=== PATIENT | female | born 1950 | race Caucasian/White ===

== ENCOUNTER → 2018-03-26 | Outpatient (CLI) | payer MEDICARE ==
[~2018-03-26] MED LIST: /ADVA50050; /CELE20CA; /WARF25TA; ACET65TA; ADV500INH INH; ALBU17IN2; ALBU17IN2 INH; ALBU83IN INH; ASPI81TA85 PO; BACT800T; CALC1TAB19 PO; CALC600T60 PO; CETI10TA; CIPR-250 PO; DONETAB6 PO; DYAZ37.5; FLAX10002 PO; FLEXERIL; GABA-1171 PO; GABA300T; IMIT50TA PO; K-LO20PO; K-TA10TA2 PO; LEVOTAB10 PO; LIDO5DIS41 TD; LIDO5DIS41 TOP; LORT5TAB PO; MINER; MOME50SP; MULTIVITAMIN; NEUR300C; OMEP40CA2 PO; PERC5TAB8; PRAV40TA; PRAV40TA2 PO; PRIL20CA; RANI300T PO; SERT-138 PO; SING10TA31; SING10TA32 PO; SUMA100T2 PO; TIZA2CAP PO; TRIA37.53 PO; TYLE500T78 PO; VITA100072 PO; VITA100L PO; VITA200015 PO; VITA500C14 PO; VITA500T; VITA500T PO; VITAMIN D50000 UNT; VITATAB74 PO; XANA0.5T PO; ZINC220C; ZOLO100T
[2018-03-26 11:51] LABS: APPEARANCE, URINE HAZY (CLEAR); BACTERIA, URINE AUTO 1+ (NEGATIVE); BILIRUBIN, URINE AUTO NEGATIVE (NEGATIVE); BLOOD, URINE BLOOD NEGATIVE (NEGATIVE); COLOR, URINE YELLOW (YELLOW); GLUCOSE, URINE (UA) AUTO NEGATIVE (NEGATIVE); KETONE, URINE AUTO NEGATIVE (NEGATIVE); LEUKOCYTE ESTERASE, URINE AUTO NEGATIVE (NEGATIVE); MUCUS, URINE SMALL (NEGATIVE); NITRITE, URINE AUTO NEGATIVE (NEGATIVE); PROTEIN, URINE AUTO NEGATIVE (NEGATIVE); RBC, URINE AUTO 2 /HPF (0-3); SPECIFIC GRAVITY URINE AUTO 1.019 (1.002-1.035); SQUAMOUS EPITHELIAL CELL UR AU 2 /HPF (0-6); UROBILINOGEN, URINE AUTO 0.2 mg/dL (0.0-2.0); WBC, URINE AUTO 1 /HPF (0-3)
[2018-03-26 11:51] LABS: HEMATOCRIT 42.8 % (36.0-47.0); HEMOGLOBIN 14.3 g/dl (12.0-15.5); MEAN CORPUSCULAR HEMOGLOBIN 30.3 pg (27.0-33.0); MEAN CORPUSCULAR HGB CONC 33.4 g/dl (32.0-36.5); MEAN CORPUSCULAR VOLUME 90.7 fl (80.0-96.0); PLATELET COUNT, AUTOMATED 237 10^3/uL (150-450); RED BLOOD COUNT 4.72 10^6/uL (4.00-5.40); WHITE BLOOD COUNT 4.7 10^3/uL (4.0-10.0)
--- NOTE | 2018-03-26 12:01 | REP ---
Chest two views HISTORY: Preop Comparison: 03/03/2008 The lungs are clear. The heart is normal in size. The pulmonary vasculature is normal in appearance. Degenerative change is present in the thoracic spine. IMPRESSION: No acute disease. Electronically Signed by Josh Gorman MD 03/26/2018 11:51 A
[2018-03-26 12:03] LABS: INR 0.99; PROTHROMBIN TIME 13.2 SECONDS (12.1-14.4)
[2018-03-26 12:14] LABS: ERYTHROCYTE SEDIMENTATION RATE 8 mm/hr (0-30)
[2018-03-26 12:38] LABS: ALBUMIN 3.9 GM/DL (3.2-5.2); ALT/SGPT 17 U/L (12-78); BILIRUBIN,TOTAL 0.6 MG/DL (0.2-1.0); BLOOD UREA NITROGEN 10 MG/DL (7-18); CALCIUM LEVEL 9.4 MG/DL (8.8-10.2); CARBON DIOXIDE LEVEL 30 MEQ/L (21-32); CHLORIDE LEVEL 108 MEQ/L (98-107); CREATININE FOR GFR 0.69 MG/DL (0.55-1.30); GLOMERULAR FILTRATION RATE > 60.0 (>45); GLUCOSE, FASTING 88 MG/DL (70-100); POTASSIUM SERUM 4.1 MEQ/L (3.5-5.1); SODIUM LEVEL 142 MEQ/L (136-145)
--- NOTE | 2018-03-27 20:39 | ECGEPIP ---
Stationary ECG Study [facility] Test Date: 2018-03-26 Pat Name: JOYCE CHUNG Department: Room: - Gender: F Metallurgical Analyst: MINI : 1950 Requested By: Lucinda Robbins Order Number: [id number] Reading MD: Adal Johsnton Measurements Intervals [place] Rate: 51 P: 77 ID: [id number] QRS: -44 QRSD: 110 T: 6 QT: 448 QTc: 415 Interpretive Statements SINUS BRADYCARDIA WITH FIRST DEGREE AV BLOCK MARKED LEFT AXIS DEVIATION NON-SPECIFIC STT ABNORMALITIES NO PRIOR Electronically Signed On 03-27-2018 20:39:30 EST by Adal Johnston
== END ==
LOC: M LAB 10:59
PROVIDERS: ATTEND Family Medicine
DX: Z01.818 Encounter for other preprocedural examination (principal); M17.12 Unilateral primary osteoarthritis, left knee; I44.0 Atrioventricular block, first degree; Z79.899 Other long term (current) drug therapy

== ENCOUNTER → 2021-03-21 | Outpatient (REF) | payer MEDICARE ==
[~2021-03-21] MED LIST changes: -/ADVA50050; -/CELE20CA; -/WARF25TA; +ADVA1AER2; -ALBU17IN2 INH; -ASPI81TA85 PO; +ASPI81TA86 PO; +CELE1CAP4; +COUM1TAB18; +DONE-1 PO; -DONETAB6 PO; -MOME50SP; +NASO50SP3; -OMEP40CA2 PO; +OMEP40CA4 PO; +PERC5TAB12 PO; +PROV108A INH; +VITA-243 PO; +VITA100018 PO; -VITA100072 PO; -VITA500T PO; +XARE10TA PO
== END ==
LOC: M LAB REF 18:48
PROVIDERS: ATTEND Ophthalmology
DX: H02.9 Unspecified disorder of eyelid (principal)

== ENCOUNTER → 2022-08-30 | Outpatient (REF) | payer MEDICARE ==
[~2022-08-30] MED LIST changes: +ALBU2.5V10 INH; +ALBU6.7H6 INH; -ALBU83IN INH; +MONT-5 PO; -PROV108A INH; -SING10TA32 PO; -TRIA37.53 PO; +TRIA37.577 PO
== END ==
LOC: M LAB REF 17:32
PROVIDERS: ATTEND Internal Medicine Endocrinology, Diabetes & Metabolism
DX: E04.1 Nontoxic single thyroid nodule (principal); E04.2 Nontoxic multinodular goiter